=== PATIENT | male | born 1990 | race Caucasian/White ===

== ENCOUNTER 2016-06-01 10:41 | Emergency (ER) | payer OTHER ==
[~2016-06-01] VITALS: Ht 182.8 cm; Wt 1208.8 kg
[2016-06-01] MEDS ORDERED: LAMICTAL25 MG PO (10:50)
[2016-06-01] MEDS ORDERED: ADDERALL 30 MG30 MG PO (10:50)
[2016-06-01] MEDS ORDERED: CLINDAMYCIN HC300 MG PO (11:39)
[2016-06-01] MEDS ORDERED: LIDOCAINE VISC100 ML MM (11:39)
[2016-06-01] MEDS ORDERED: Motrin,Rufen800 MG PO (11:39)
[2016-06-01] MEDS ORDERED: Peridex 473 ML473 ML PO (11:39)
== END 2016-06-01 12:28 | disposition home or self-care (01) ==
LOC: ED 10:41
DX: K08.89 Other specified disorders of teeth and supporting structures (principal); F17.200 Nicotine dependence, unspecified, uncomplicated; Z88.0 Allergy status to penicillin; Z79.899 Other long term (current) drug therapy

== ENCOUNTER 2016-09-25 22:00 | Emergency (ER) | payer OTHER ==
[~2016-09-25] VITALS: Ht 180.3 cm; Wt 136.1 kg
[~2016-09-25 22:00] MED LIST: ADDERALL 30 MG30 MG PO; CLINDAMYCIN HC300 MG PO; LAMICTAL25 MG PO; LIDOCAINE VISC100 ML MM; Motrin,Rufen800 MG PO; Peridex 473 ML473 ML PO
[2016-09-25] MEDS ORDERED: BACTRIM DS 8001 TA1 PO (23:37)
== END 2016-09-25 23:49 | disposition home or self-care (01) ==
LOC: ED 22:00
DX: L02.413 Cutaneous abscess of right upper limb (principal); F17.200 Nicotine dependence, unspecified, uncomplicated; Z88.0 Allergy status to penicillin; Z79.899 Other long term (current) drug therapy

== ENCOUNTER 2017-05-13 10:03 | Emergency (ER) | payer OTHER ==
[~2017-05-13] VITALS: Ht 180.3 cm; Wt 122.5 kg
[~2017-05-13 10:03] MED LIST changes: +BACTRIM DS 8001 TA1 PO
[2017-05-13 10:20] LABS: BASO # 0.1 10*3/uL (0.0-0.1); EOS # 0.2 10*3/uL (0.0-0.4); EOS % 1.6 % (1.0-4.0); HEMATOCRIT 52.3 % (42.0-52.0); HEMOGLOBIN 18.2 g/dl (14.0-18.0); LYMPH # 2.3 10*3/uL (1.3-4.4); LYMPH % 24.2 % (27.0-41.0); MEAN CELL VOLUME 85.9 fl (80.0-94.0); MEAN CORPUSCULAR HGB 29.9 pg (27.0-31.0); MEAN CORPUSCULAR HGB CONC 34.8 g/dl (33.0-37.0); MEAN PLATELET VOLUME 9.8 fl (9.6-12.3); MONO # 0.7 10*3/uL (0.1-1.0); NEUT # 6.2 10*3/uL (2.3-7.9); NEUT % 65.8 % (47.0-73.0); PLATELET COUNT AUTOMATED 387 10*3/uL (130-400); RED BLOOD COUNT 6.09 10*6/uL (4.50-5.90); RED CELL DISTRI WIDTH 12.6 % (0-14.5); WHITE BLOOD COUNT 9.4 10*3/uL (4.8-10.8)
[2017-05-13 10:30] LABS: ACT PARTIAL THROMBO TIME 22.4 SECONDS (20.8-31.5)
[2017-05-13 10:37] LABS: ALBUMIN 4.4 gm/dl (3.1-4.5); ALKALINE PHOSPHATASE 82 U/L (45-117); BUN 7 mg/dl (7-24); CHLORIDE 107 mmol/L (98-107); POTASSIUM 3.9 mmol/L (3.5-5.1); SGOT/AST 32 IU/L (3-35); SGPT/ALT 92 U/L (12-78); SODIUM 141 mmol/L (136-145); TOTAL PROTEIN 7.7 gm/dL (6.4-8.2)
[2017-05-13 10:40] LABS: TROPONIN I < 0.015 ng/ml (<0.045)
== END 2017-05-13 12:33 | disposition home or self-care (01) ==
LOC: ED 10:03
PROVIDERS: Emergency Medicine
DX: F41.9 Anxiety disorder, unspecified (principal); F17.200 Nicotine dependence, unspecified, uncomplicated; Z88.0 Allergy status to penicillin

== ENCOUNTER 2017-05-30 09:02 | Emergency (ER) | payer OTHER ==
[~2017-05-30] VITALS: Wt 129.3 kg
[2017-05-30] MEDS ORDERED: ZOFRAN4 MG PO (09:05)
== END 2017-05-30 09:21 | disposition home or self-care (01) ==
LOC: ED 09:02
DX: K52.9 Noninfective gastroenteritis and colitis, unspecified (principal); R03.0 Elevated blood-pressure reading, without diagnosis of hypertension; Z79.899 Other long term (current) drug therapy; Z88.0 Allergy status to penicillin

== ENCOUNTER 2017-07-18 23:10 | Emergency (ER) | payer OTHER ==
[~2017-07-18] VITALS: Ht 177.8 cm
[~2017-07-18 23:10] MED LIST changes: +ZOFRAN4 MG PO
[2017-07-18] MEDS ORDERED: SEPTDS PO (23:29)
== END 2017-07-18 23:36 | disposition home or self-care (01) ==
LOC: ED 23:10
DX: L02.31 Cutaneous abscess of buttock (principal); F17.200 Nicotine dependence, unspecified, uncomplicated; Z88.0 Allergy status to penicillin; Z79.899 Other long term (current) drug therapy

== ENCOUNTER 2018-03-21 08:59 | Emergency (ER) | payer OTHER ==
[~2018-03-21] VITALS: Wt 127.0 kg
[~2018-03-21 08:59] MED LIST changes: +SEPTDS PO
[2018-03-21] MEDS ORDERED: CIPRODEX 0.3%-7.5 ML OT (09:41)
[2018-05-10] MEDS ORDERED: AMPHETAMINE SAL15 M1 PO (21:19)
[2018-05-10] MEDS ORDERED: MIXED AMPHETAMI30 M1 PO (21:20)
[2018-05-10] MEDS ORDERED: ANUSOL HC30 GM T (21:25)
== END 2018-03-21 10:16 | disposition home or self-care (01) ==
LOC: ED 08:59
DX: H60.92 Unspecified otitis externa, left ear (principal); F17.200 Nicotine dependence, unspecified, uncomplicated; Z88.0 Allergy status to penicillin; Z79.899 Other long term (current) drug therapy

== ENCOUNTER 2019-08-11 01:24 | Emergency (ER) | payer OTHER ==
[~2019-08-11] VITALS: Ht 180.3 cm; Wt 136.1 kg
[~2019-08-11 01:24] MED LIST changes: +AMPHETAMINE SAL15 M1 PO; +ANUSOL HC30 GM T; +CIPRODEX 0.3%-7.5 ML OT; +MIXED AMPHETAMI30 M1 PO
[2019-08-11 02:04] LABS: HEMATOCRIT 47.7 % (42.0-52.0); MEAN CELL VOLUME 87.8 fl (80.0-94.0); MEAN CORPUSCULAR HGB 30.6 pg (27.0-31.0); MEAN CORPUSCULAR HGB CONC 34.8 g/dl (33.0-37.0); MEAN PLATELET VOLUME 9.8 fl (9.6-12.3); PLATELET COUNT AUTOMATED 303 10*3/uL (130-400); RED BLOOD COUNT 5.43 10*6/uL (4.50-5.90); WHITE BLOOD COUNT 20.4 10*3/uL (4.8-10.8)
[2019-08-11 02:19] LABS: ALBUMIN 3.7 gm/dl (3.1-4.5); ALKALINE PHOSPHATASE 75 U/L (45-117); BUN 6 mg/dl (7-24); CHLORIDE 105 mmol/L (98-107); CREATININE 1.02 mg/dL (0.70-1.30); POTASSIUM 3.4 mmol/L (3.5-5.1); SGOT/AST 16 IU/L (3-35); SGPT/ALT 58 U/L (12-78); SODIUM 136 mmol/L (136-145); TOTAL PROTEIN 7.5 gm/dL (6.4-8.2)
[2019-08-11 02:24] LABS: TOTAL CELLS COUNTED 100 #CELLS
[2019-08-11 02:25] LABS: PLATELET SUFFICIENCY NORMAL (NORMAL)
[2019-08-11 02:29] LABS: BILIRUBIN NEGATIVE (NEGATIVE); BLOOD TRACE-INTACT (NEGATIVE); CLARITY CLEAR (CLEAR); COLOR YELLOW (YELLOW); GLUCOSE NEGATIVE (NEGATIVE); KETONE NEGATIVE (NEGATIVE); NITRITE NEGATIVE (NEGATIVE)
[2019-08-11 02:30] LABS: LEUKO ESTERASE NEGATIVE (NEGATIVE)
[2019-08-11 02:38] LABS: MUCOUS TRACE; WBC 0-2 wbc/hpf (0-5)
[2019-08-11] MEDS ORDERED: Motrin,Rufen800 MG PO (03:33)
[2019-08-11] MEDS ORDERED: ZITHROMAX250 MG PO (03:33)
== END 2019-08-11 03:25 | disposition home or self-care (01) ==
LOC: ED 01:24
PROVIDERS: Emergency Medicine Emergency Medical Services
DX: J02.0 Streptococcal pharyngitis (principal); E86.0 Dehydration; F31.9 Bipolar disorder, unspecified; F17.200 Nicotine dependence, unspecified, uncomplicated; Z88.0 Allergy status to penicillin; Z79.899 Other long term (current) drug therapy

== ENCOUNTER 2020-01-05 22:01 | Emergency (ER) | payer OTHER ==
[~2020-01-05] VITALS: Wt 136.1 kg
[~2020-01-05 22:01] MED LIST changes: +ZITHROMAX250 MG PO
[2020-01-05] MEDS ORDERED: PREDNISONE20 M1 PO (22:47)
[2020-01-05] MEDS ORDERED: PROVENTIL HFA6.7 GM INH (22:47)
== END 2020-01-05 23:28 | disposition home or self-care (01) ==
LOC: ED 22:01
DX: R50.9 Fever, unspecified (principal); R05 Cough; Z79.899 Other long term (current) drug therapy; Z20.828 Contact with and (suspected) exposure to other viral communicable diseases

== ENCOUNTER → 2020-05-30 | Outpatient (CLI) | payer OTHER ==
[~2020-05-30] MED LIST changes: +PREDNISONE20 M1 PO; +PROVENTIL HFA6.7 GM INH
== END | disposition home or self-care (01) ==
LOC: COVID19 09:33
PROVIDERS: ATTEND Internal Medicine
DX: Z20.822 Contact with and (suspected) exposure to COVID-19 (principal)